=== PATIENT | male | born 1980 | race Caucasian/White ===

== ENCOUNTER 2017-07-06 11:16 | Emergency (ER) | payer BC ==
[~2017-07-06] VITALS: Ht 185.4 cm; Wt 88.0 kg
[2017-07-06 11:44] VITALS: BP 130/83
[2017-07-06] MEDS ORDERED: PROMETHAZINE HCL 25 MG/ML 1ML IM ONE (12:00)
[2017-07-06] MEDS ORDERED: MEPERIDINE HCL (50 MG/ML) 1 ML VIAL IM ONE (12:00)
[2017-07-06] MEDS ORDERED: KETOROLAC TROMETH 60MG/2ML VIAL IM ONE (13:15)
== END 2017-07-06 13:39 | disposition home or self-care (01) ==
LOC: ER 11:16
DX: G89.29 Other chronic pain (principal); M54.5 Low back pain; M48.061 Spinal stenosis, lumbar region without neurogenic claudication
CPT/HCPCS: 72131; 96372; 99284; J1885; J2175; J2550